=== PATIENT | male | born 2000 | race Caucasian/White ===

== ENCOUNTER 2021-08-16 08:54 | Emergency (ER) | payer OTHER, BC, SELFPAY ==
[2021-08-16 09:04] VITALS: BP 136/85; PULSE 60; RESP 16; TEMP 36.3; O2SAT 99
--- NOTE | 2021-08-16 09:55 | ED.WOUNDLAC ---
HPI - Wound/Laceration General Chief Complaint: Wound/Laceration Stated Complaint: L WRIST LAC Time Seen by Provider: 08/16/21 08:58 Source: patient History of Present Illness HPI narrative: Patient presents with laceration on his left wrist. 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 Initially went to urgent care urgent care referred him to the ER for further evaluation. Patient reports some paresthesias in his hands. Reports he is up-to-date on his tetanus he denies any weakness Related Data Home Medications Medication Instructions Recorded Confirmed No Home Medications 08/16/21 08/16/21 Allergies Allergy/AdvReac Type Severity Reaction Status Date / Time No Known Allergies Allergy Unverified 08/16/21 09:18 Review of Systems Review of Systems: CONSTITUTIONAL: Denies fever, chills, or sweats. EYES: Denies visual changes, redness, or discharge. ENT: Denies rhinorrhea, congestion, sore throat, or otalgia. RESPIRATORY: Denies cough or dyspnea. GASTROINTESTINAL: Denies abdominal pain, nausea, vomiting, or diarrhea. MUSCULOSKELETAL: Denies joint pain, or myalgia. NEUROLOGIC: Denies headache, numbness, dizziness, or weakness. PSYCHIATRIC: Denies anxiety or depression. [facility] Social History Social History (Updated 08/16/21 @ 14:31 by Mike Fish MD) Alcohol intake: never Exam Narrative: GENERAL: Well-appearing, well-nourished, and in no acute distress. HEAD: Normocephalic, atraumatic. EYES: PERRLA and EOMI. ENT: Nares clear, no rhinorrhea or epistaxis. Mucous membranes moist. NECK: Supple. No masses. No JVD EXTREMITIES: Normal range of motion. Chapin-like laceration on the left wrist approximately 3 and half centimeters in total length. Laceration is superficial there are no deep space tissue identified such as large neurovascular bundles or tendons. Wound was evaluated through full range of motion SKIN: Warm, dry, no rash. NEURO: No focal deficits. Alert and oriented x3. PSYCH: Normal mood and affect. Course Vital Signs Vital signs: Vital Signs Temperature 36.3 C L 08/16/21 09:04 Pulse Rate 60 08/16/21 09:04 Respiratory Rate 16 08/16/21 09:04 Blood Pressure 136/85 08/16/21 09:04 Pulse Oximetry 99 08/16/21 09:04 Temperature 36.3 C L 08/16/21 09:04 Pulse Rate 60 08/16/21 09:04 Respiratory Rate 16 08/16/21 09:04 Blood Pressure 136/85 08/16/21 09:04 Pulse Oximetry 99 08/16/21 09:04 Procedures Laceration Laceration 1: Date: 08/16/21 Time: 09:36 Site: upper extremity Side (If applicable): left Size (cm): 3.5 Description: flap Local Anesthetic: lidocaine 1% and with epi Amount of anesthesia used (mL): 3 Pre-repair: wound explored and irrigated ====== Skin Level ====== Skin layer closed with: nylon Size (cm): 5-0 Number of sutures: 5 Technique: simple, interrupted and other (half mattress 2) ====== Subcutaneous Layer ====== ====== Muscle Layer ====== ====== Tendon Layer ====== MDM - Wound/Laceration MDM Narrative Medical decision making narrative: H&P as above, vss, pt looks clinically well, exam with superficial laceration distal extremities neurovascularly intact, labs/img considered, symptomatic relief available as needed, on reevaluation pt continues to looks clinically well. Suspect isolated superficial laceration, dns tendon laceration or large neurovascular bundle injury. plan to tx/monitor as op w/ pcm f/u findings/plan discussed with pt, pt agree/comfortable with plan, return precautions given Discharge Plan Discharge Clinical Impression: Laceration Patient Disposition: Home, Self-Care Condition: Improved Instructions: Antibiotic Form, Laceration (ED) Additional Instructions: Please return if your symptoms worsen or fail to improve. If you develop a fever, can not eat/drink
== END 2021-08-16 10:43 | disposition home or self-care (01) ==
PROVIDERS: Emergency Provider Emergency Medicine
DX: S61.512A Laceration without foreign body of left wrist, initial encounter (principal); W26.8XXA Contact with other sharp object(s), not elsewhere classified, initial encounter
CPT/HCPCS: 12002; 99282

== ENCOUNTER 2023-08-13 10:05 | Emergency (ER) | payer OTHER, BC, SELFPAY ==
[2023-08-13 10:11] VITALS: BP 122/87; PULSE 72; RESP 20; TEMP 36.7; O2SAT 99
--- NOTE | 2023-08-13 10:33 | ED.GENADULT ---
[facility] - General Adult General Chief complaint: Wound/Laceration Stated complaint: LIP LACERATION Time Seen by Provider: 08/13/23 10:20 Source: patient Mode of arrival: ambulatory Limitations: no limitations History of Present Illness HPI narrative: This is a 22-year-old male who presents to the ED with chief complaint of a upper lip laceration injury that occurred just prior to arrival. Patient was working with heavy tools when a wrench accidentally came up and hit him in the face. Reports subsequent laceration to the area. Denies any further site of pain or injury. Tdap UTD Related Data Home Medications Medication Instructions Recorded Confirmed No Home Medications 08/16/21 08/16/21 Allergies Allergy/AdvReac Type Severity Reaction Status Date / Time No Known Allergies Allergy Unverified 08/16/21 09:18 Review of Systems Review of Systems: All systems as dictated in [facility] Social History Social History (Updated 08/16/21 @ 14:31 by Mike Fish, ) Alcohol intake: never Exam Narrative: GENERAL: Well-appearing, well-nourished, and in no acute distress. HEAD: Normocephalic, atraumatic. EYES: PERRLA and EOMI. ENT: Nares clear, no rhinorrhea or epistaxis. Mucous membranes moist. Oropharynx without tonsillar hypertrophy exudate or other lesions. NECK: Supple. No adenopathy or masses. CHEST: No respiratory distress. Clear to auscultation. No wheezes rales or rhonchi HEART: Regular rate and rhythm. No murmur heard. Normal peripheral pulses. ABDOMEN: Soft, nontender, nondistended, normal active bowel sounds. MSK: Normal range of motion. No edema. SKIN: There is a 1.5 cm simple laceration to the right upper lip. It does not cross the vermilion border. Bleeding controlled. It is not through and through. NEURO: Alert and oriented x3. No focal deficits. PSYCH: Normal mood and affect. Course Vital Signs Vital signs: Vital Signs Temperature 98.1 F 08/13/23 10:11 Pulse Rate 72 08/13/23 10:11 Respiratory Rate 20 08/13/23 10:11 Blood Pressure 122/87 08/13/23 10:11 Pulse Oximetry 99 08/13/23 10:11 Oxygen Delivery Room Air 08/13/23 10:11 Temperature 98.1 F 08/13/23 10:11 Pulse Rate 72 08/13/23 10:11 Respiratory Rate 20 08/13/23 10:11 Blood Pressure 122/87 08/13/23 10:11 Pulse Oximetry 99 08/13/23 10:11 Oxygen Delivery Room Air 08/13/23 10:11 Procedures Laceration Laceration 1: Date: 08/13/23 Time: 10:50 Site: lip Side (If applicable): right Size (cm): 1.5 Description: linear (does not involve aliya border) Depth: simple, single layer Local Anesthetic: lidocaine 1% Amount of anesthesia used (mL): 1.5 Pre-repair: wound explored ====== Skin Level ====== Skin layer closed with: nylon Size (cm): 6-0 Number of sutures: 4 Technique: simple, interrupted ====== Subcutaneous Layer ====== ====== Muscle Layer ====== ====== Tendon Layer ====== Medical Decision Making MDM Narrative Medical decision making narrative: This is a 22-year-old male who presents to the ED with chief complaint of right lip laceration following an injury at work in which he accidentally was hit with a wrench. Vitals are normal. Exam shows a 1.5 cm laceration to the right upper lip. It abuts the vermilion border but does not involve. Bleeding controlled. Wound was well cleaned and irrigated here. Sutures placed. Laceration instructions given. Pt will be discharged in stable condition. Return precautions given and supportive measures discussed. Pt is understanding and agreeable with plan for discharge and follow-up with PCP. Vital Signs Vital Signs: Vital Signs Temperature 98.1 F 08/13/23 10:11 Pulse Rate 72 08/13/23 10:11 Respiratory Rate 20 08/13/23 10:11 Blood Pressure 122/87 08/13/23 10:11 Pulse Oximetry 99 08/13/23 1
[2023-08-13] MEDS: LIDOCAINE HCL 1% LOCAL INJ 10 ML VIAL (11:51)
== END 2023-08-13 12:10 | disposition home or self-care (01) ==
PROVIDERS: Emergency Provider Physician Assistant
DX: S01.511A Laceration without foreign body of lip, initial encounter (principal); W27.0XXA Contact with workbench tool, initial encounter
CPT/HCPCS: 12011; 99282

== ENCOUNTER 2024-05-10 10:16 | Outpatient (CLI) | payer BC, SELFPAY ==
[2024-05-10 13:11] LABS: Basophils Percent Auto 0.6 % (0.2-1.2); Eosinophils Absolute Auto 0.1 K/mm3 (0-0.3); Hematocrit 47.6 % (42.0-52.0); Hemoglobin 15.4 g/dL (14.0-18.0); Immature Granulocyte Absolute 0.02 K/mm3 (0.00-0.031); Immature Granulocyte Percent A 0.3 % (0-0.5); Lymphocytes Percent Auto 31.3 % (18.3-44.2); Mean Corpuscular HGB Conc 32.4 g/dl (32-36); Mean Corpuscular Volume 86.5 fl (80-100); Mean Platelet Volume 9.9 fl (7.4-10.4); Monocytes Absolute Auto 0.4 K/mm3 (0.1-0.6); Monocytes Percent Auto 6.7 % (2.6-8.5); Neutrophils Absolute Auto 3.8 K/mm3 (1.3-6.7); Neutrophils Percent Auto 59.1 % (45.5-73.1); Platelet Count Result 242 k/mm3 (150-375); Red Cell Distribution Width 11.9 % (11.5-14.5); White Blood Count 6.4 K/mm3 (4.5-10.0)
[2024-05-10 13:18] LABS: Alanine Aminotransferase 20 U/L (6-50); Albumin Level 4.8 g/dL (3.5-5.1); Alkaline Phosphatase 74 U/L (38-126); Anion Gap 8 mmol/L (4-12); Aspartate Amino Transferase 64 U/L (17-59); Bilirubin,Total 0.7 mg/dL (0.2-1.3); Blood Urea Nitrogen 19 mg/dL (9-20); Calcium 9.8 mg/dL (8.4-10.2); Carbon Dioxide 31 mmol/L (22-30); Chloride 103 mmol/L (98-107); Estimated Glomerular Filt Rate > 60; Glucose 91 mg/dL (65-110); Lipase 77 U/L (23-300); Potassium 4.8 mmol/L (3.4-5.0); Sodium 142 mmol/L (137-145)
[2024-05-13 03:25] LABS: Immunoglobulin A 209 mg/dL (47-310); TTG IGA AB <1.0 U/mL
== END 2024-05-10 10:17 | disposition home or self-care (01) ==
LOC: ANHGOSHLAB 10:18
PROVIDERS: PCP Internal Medicine; Visit Provider Internal Medicine
DX: R10.13 Epigastric pain (principal); R19.5 Other fecal abnormalities; K59.9 Functional intestinal disorder, unspecified
CPT/HCPCS: 36415; 80053; 82784; 83690; 84443; 85025; 86364

== ENCOUNTER 2024-06-02 06:56 | Outpatient (NON) | payer BC, SELFPAY ==
[2024-06-09 22:13] LABS: Pancreatic Elastase, Stool >500 mcg/g
== END 2024-06-02 06:57 | disposition home or self-care (01) ==
LOC: ANHLAB 06:57
PROVIDERS: PCP Internal Medicine; Visit Provider Internal Medicine
DX: R10.13 Epigastric pain (principal); R19.5 Other fecal abnormalities; K59.9 Functional intestinal disorder, unspecified
CPT/HCPCS: 82653

== ENCOUNTER 2024-07-01 01:18 | Day surgery (SDC) | payer BC, SELFPAY ==
[2024-06-13 15:16] VITALS: BMI 25.1
[2024-07-01] MEDS: LACTATED RINGERS 1,000 ML 150 ML IV CONT (08:16)
[2024-07-01 08:17] VITALS: BP 115/74; PULSE 79; RESP 14; TEMP 36.9; O2SAT 98
--- NOTE | 2024-07-01 09:12 | P.PNAN_ITS ---
Anes - Initial Pre Proc Eval Procedure: Operation Date: 07/01/24 09:30 Proposed Procedures p Esophagogastroduodenoscopy & Colonoscopy - Hakan Caldwell MD Date/Time: 07/01/24 09:12 Surgeon: Hakan Caldwell MD Pre Op Diagnosis: Melena , functional intestinal disorder, Patient Data Age: 23 Gender: M Height: 1.83 m Weight: 80.8 kg Last Vital Signs Temp 98.4 F 07/01/24 08:17 Pulse 79 07/01/24 08:17 Resp 14 07/01/24 08:17 BP 115/74 07/01/24 08:17 Pulse Ox 98 07/01/24 08:17 O2 Del Method Room Air 07/01/24 08:17 Allergies Allergy/AdvReac Type Severity Reaction Status Date / Time No Known Allergies Allergy Verified 07/01/24 08:10 Home Medications Medication Instructions Recorded Confirmed Type No Home Medications 08/16/21 07/01/24 History Patient hx anesthesia problems: none Family hx anesthesia problems: none Results Review: All pre-operative results and documents have been reviewed as part of the pre- operative evaluation. [facility] Past Medical History Medical History (Updated 05/10/24 @ 09:57 by Porfirio Aldridge DO) Asthma Sport induced Asthma in High School Family History Family History (Updated 05/10/24 @ 08:55 by Theresa Birmingham CMA) Grandparent Carcinoma of colon Other Carcinoma of colon Social History Social History (Updated 05/10/24 @ 08:57 by Theresa Birmingham CMA) Smoking status: Never smoker Tobacco type: e-cigarettes/vaping Second hand tobacco smoke exposure: No Alcohol intake: current Alcohol use details: rarely Substance use: current Substance use type: marijuana Other substance usage details: 3x week Do You Feel Safe in your Home?: Yes Lack of Transportation: No Lack of Food: Never True Current Housing: I Have Housing Concerned About Future Housing: No Difficulty Paying Gas/Electric Bills: No Difficulty Paying for Meds: No Currently Unemployed: No Education: Trade/Vocational Certificate Difficulty w/ Childcare or Family Care: No Living arrangements: with family Occupation/Education: occupation Gender identity (if verbalized by the patient): Male Spiritual care concerns: No Agree to blood products: Yes Anes - Eval Final PreProcedure Day of Procedure 07/01/24 09:12 Patient weight: normal Heart: regular rate and rhythm Lungs: clear to auscultation Airway: Mallampati scale class II Neurological: alert and oriented Last oral intake: >/= 8 hours ASA classification: II Emergent: no Anesthetic plan: proceed Anesthesia type and monitoring: general GIVS and standard monitoring Results Review: All pre-operative results and documents have been reviewed as part of the pre- operative evaluation. Informed Consent: The patient's anesthetic plan and its attendant risks and benefits were discussed with the patient/family/POA. Questions were solicited and answers provided to the satisfaction of the patient/family/POA.
--- NOTE | 2024-07-01 09:44 | PM.HPGS ---
History of Present Illness History of Present Illness Consent: Risks, benefits, and alternatives have been discussed and questions answered. Patient agrees to proceed with procedure. Chief complaint: Melena , functional intestinal disorder, Narrative: Giovanny Solomon is a 23 year old male with intermittent abdominal pain, also few occasions noted small amount of blood in stool, never had scopes Review of Systems Review of Systems: All systems reviewed & are unremarkable except as noted in HPI and below PMFSH Past Medical History Medical History (Updated 07/01/24 @ 09:47 by Hakan Caldwell MD) Asthma Sport induced Asthma in High School Rectal bleeding Family History Family History (Updated 05/10/24 @ 08:55 by Theresa Birmingham CMA) Grandparent Carcinoma of colon Other Carcinoma of colon Social History Social History (Updated 05/10/24 @ 08:57 by Theresa Birmingham CMA) Smoking status: Never smoker Tobacco type: e-cigarettes/vaping Second hand tobacco smoke exposure: No Alcohol intake: current Alcohol use details: rarely Substance use: current Substance use type: marijuana Other substance usage details: 3x week Do You Feel Safe in your Home?: Yes Lack of Transportation: No Lack of Food: Never True Current Housing: I Have Housing Concerned About Future Housing: No Difficulty Paying Gas/Electric Bills: No Difficulty Paying for Meds: No Currently Unemployed: No Education: Trade/Vocational Certificate Difficulty w/ Childcare or Family Care: No Living arrangements: with family Occupation/Education: occupation Gender identity (if verbalized by the patient): Male Spiritual care concerns: No Agree to blood products: Yes Meds Home Medications and Allergies Home Medications Medication Instructions Recorded Confirmed Type No Home Medications 08/16/21 07/01/24 History Allergies Allergy/AdvReac Type Severity Reaction Status Date / Time No Known Allergies Allergy Verified 07/01/24 08:10 Vital Signs Vital Signs - 24 hr 07/01/24 08:17 Temperature 98.4 F Pulse Rate 79 Respiratory Rate 14 Blood Pressure 115/74 Pulse Oximetry 98 Oxygen Delivery Room Air Exam Const: General: comfortable and no acute distress HENMT: Face/Nose/Sinus: Normal nares present Eyes: General: appearance normal, both eyes and all related structures Neck: Neck: no JVD Resp: Auscultation: clear to auscultation bilaterally Cardio: Rate: regular rate Rhythm: regular rhythm GI: Inspection: non-distended GI Palp: Yes Soft to palpation Skin: General skin exam: normal color Neuro: General: gait normal Speech: normal speech Extrem: General: normal to inspection Psych: Mental Status: mental status grossly normal Assessment and Plan Assessment and plan (1) Epigastric pain: Code(s): R10.13 - Epigastric pain Status: Acute Assessment and Plan: egd with bx (2) Rectal bleeding: Code(s): K62.5 - Hemorrhage of anus and rectum Status: Acute Assessment and Plan: colonoscopy
--- NOTE | 2024-07-01 10:02 | SUR.OPER ---
EGD end time: 954, Colonoscopy start time: 999
[2024-07-01 10:14] VITALS: BP 96/57; PULSE 61; RESP 19; O2SAT 98
[2024-07-01 10:24] VITALS: BP 98/59; PULSE 54; RESP 22; O2SAT 100
[2024-07-01 10:34] VITALS: BP 107/69; PULSE 48; RESP 25; O2SAT 100
== END 2024-07-01 10:40 | disposition home or self-care (01) ==
PROVIDERS: PCP Internal Medicine; Referring Provider Internal Medicine; Visit Provider Internal Medicine Gastroenterology
PROC: 0DJ08ZZ Inspection of Upper Intestinal Tract, Via Natural or Artificial Opening Endoscopic (ICD-10-PCS; CPT 43235; principal; 2024-07-01 09:30)
DX: K64.8 Other hemorrhoids (principal); K21.00 Gastro-esophageal reflux disease with esophagitis, without bleeding; F12.90 Cannabis use, unspecified, uncomplicated
CPT/HCPCS: 45378; 43239; 88305; J2704; J7120